=== PATIENT | male | born 1990 | race African-American/Black ===

== ENCOUNTER 2022-05-06 09:11 | Emergency (ER) | payer OTHER ==
[2022-05-06 09:44] VITALS: BP 139/95; PULSE 71; RESP 16; TEMP 97.8; BMI 24.6
== END 2022-05-06 09:58 | disposition home or self-care (01) ==
LOC: FER 09:11
DX: S81.832A Puncture wound without foreign body, left lower leg, initial encounter (principal); W54.0XXA Bitten by dog, initial encounter
CPT/HCPCS: 99281-25

== ENCOUNTER 2022-05-23 19:11 | Emergency (ER) | payer OTHER ==
[2022-05-23] MEDS ORDERED: RABIES VACCINE (PCEC)/PF 2.5 UNIT/VIAL IM ONE ×2 (20:12→20:28)
[2022-05-23 20:23] VITALS: BP 130/85; PULSE 75; RESP 16; TEMP 98.3; BMI 23.3
== END 2022-05-23 20:50 | disposition home or self-care (01) ==
LOC: FER 19:11
PROC: 3E0234Z Introduction of Serum, Toxoid and Vaccine into Muscle, Percutaneous Approach (ICD-10-PCS; principal; 2022-05-23)
DX: Z29.14 Encounter for prophylactic rabies immune globulin (principal)
CPT/HCPCS: 90471; 90675; 99284-25

== ENCOUNTER 2022-05-26 10:16 | Emergency (ER) | payer OTHER ==
[2022-05-26] MEDS ORDERED: RABIES VACCINE (PCEC)/PF 2.5 UNIT/VIAL IM ONE (10:18)
[2022-05-26 10:23] VITALS: BP 133/89; PULSE 59; RESP 16; TEMP 98.4; BMI 22.6
== END 2022-05-26 10:56 | disposition home or self-care (01) ==
LOC: MERGE 10:16 → FER 10:16
PROC: 3E023GC Introduction of Other Therapeutic Substance into Muscle, Percutaneous Approach (ICD-10-PCS; principal; 2022-05-26)
DX: Z20.3 Contact with and (suspected) exposure to rabies (principal); Z23 Encounter for immunization
CPT/HCPCS: 90471; 90675; 96372; 99283-25

== ENCOUNTER 2022-05-30 21:29 | Emergency (ER) | payer OTHER ==
[2022-05-30 21:36] VITALS: BP 129/79; PULSE 73; RESP 16; TEMP 97.8; BMI 22.6
[2022-05-30] MEDS ORDERED: RABIES VACCINE (PCEC)/PF 2.5 UNIT/VIAL IM ONE ×2 (21:43→21:58)
[2022-05-30] MEDS ORDERED: DEXAMETHASONE SOD PHOSPHATE 10 MG/1 ML VIAL ONE (22:22)
== END 2022-05-30 22:08 | disposition home or self-care (01) ==
LOC: FER 21:29
PROC: 3E023GC Introduction of Other Therapeutic Substance into Muscle, Percutaneous Approach (ICD-10-PCS; principal; 2022-05-30)
DX: Z20.3 Contact with and (suspected) exposure to rabies (principal); Z23 Encounter for immunization
CPT/HCPCS: 90471; 90675; 99283-25

== ENCOUNTER 2022-06-06 13:10 | Emergency (ER) | payer OTHER ==
[2022-06-06 13:25] VITALS: BP 120/80; PULSE 90; RESP 16; TEMP 99.2; BMI 22.7
[2022-06-06] MEDS ORDERED: RABIES VACCINE (PCEC)/PF 2.5 UNIT/VIAL IM ONE ×2 (14:04→14:06)
== END 2022-06-06 14:20 | disposition home or self-care (01) ==
LOC: FER 13:10
PROC: 3E0234Z Introduction of Serum, Toxoid and Vaccine into Muscle, Percutaneous Approach (ICD-10-PCS; principal; 2022-06-06)
DX: Z29.14 Encounter for prophylactic rabies immune globulin (principal)
CPT/HCPCS: 90675; 99283-25

== ENCOUNTER 2023-09-09 07:18 | Emergency (ER) | payer OTHER ==
[2023-09-09 07:41] VITALS: BP 140/98; PULSE 80; RESP 18; TEMP 99.4; BMI 23.3
[2023-09-09] MEDS ORDERED: ALBUTEROL SO4 2.5/IPRATROPIUM 0.5 INH SOL 3 ML VIAL.NEB. NEB ONE (07:57)
[2023-09-09] MEDS: ALBUTEROL SO4 2.5/IPRATROPIUM 0.5 INH SOL 3 ML VIAL.NEB. NEB ONE (08:07)
[2023-09-09 08:37] LABS: HEMATOCRIT 45.7 % (35.4-49); HEMOGLOBIN 15.2 G/dL (11.7-16.9); MCH 28.1 pg (25.7-33.7); MCHC 33.2 g/dl (32.0-35.9); MEAN CELL VOLUME 84.7 fl (80-96); MEAN PLT VOLUME 8.8 fl (7.5-11.1); PLATELET COUNT 190.2 10^3/uL (134-434); RBC 5.39 10^6/uL (4.00-5.60); RDW 14.2 % (11.9-15.9); WHITE BLOOD COUNT 8.5 10^3/uL (4.0-10.8)
[2023-09-09 08:46] LABS: ALBUMIN 4.6 g/dl (3.4-5.0); BILIRUBIN,TOTAL 1.4 mg/dl (0.2-1); CALCIUM 9.4 mg/dl (8.5-10.1); CREATININE 1.2 mg/dl (0.6-1.3); POTASSIUM 3.8 mmol/L (3.5-5.1); TOT PROT 8.1 g/dl (6.4-8.2)
[2023-09-09] MEDS ORDERED: IBUPROFEN 600 MG TABLET (FP) PO ONE (09:02)
[2023-09-09] MEDS: IBUPROFEN 600 MG TABLET (FP) PO ONE (09:11)
[2023-09-09 10:16] LABS: PLATELET ESTIMATE ADEQUATE
== END 2023-09-09 10:31 | disposition home or self-care (01) ==
LOC: FER 07:18
PROC: 3E0F7GC Introduction of Other Therapeutic Substance into Respiratory Tract, Via Natural or Artificial Opening (ICD-10-PCS; principal; 2023-09-09)
DX: R05.9 Cough, unspecified (principal); J02.9 Acute pharyngitis, unspecified; R09.81 Nasal congestion; R51.9 Headache, unspecified; R07.9 Chest pain, unspecified; J40 Bronchitis, not specified as acute or chronic; Z20.822 Contact with and (suspected) exposure to COVID-19
CPT/HCPCS: 0241U-QW; 36415; 71046-TC-FY; 76705-TC; 80053; 84484; 85025; 93005; 99285-25

== ENCOUNTER 2024-03-21 18:12 | Emergency (ER) | payer OTHER ==
[2024-03-21 19:00] VITALS: BP 140/81; PULSE 78; RESP 20; TEMP 98.4; BMI 24.1
== END 2024-03-21 19:01 | disposition home or self-care (01) ==
LOC: FER 18:12
DX: H61.23 Impacted cerumen, bilateral (principal); L29.9 Pruritus, unspecified
CPT/HCPCS: 99283-25